=== PATIENT | female | born 1980 | race Caucasian/White ===

== ENCOUNTER 2019-02-15 22:39 | Inpatient (IN) | payer OTHER ==
[2019-02-15 23:14] VITALS: BMI 37.4
[2019-02-15] MEDS ORDERED: hydrALAZINE 20 MG/ML VIAL SLOW IVP PRN (23:41)
[2019-02-15] MEDS ORDERED: HYDROcodone/Acetaminophen 5/325 mg Tablet PO PRN ×2 (23:41)
[2019-02-15] MEDS ORDERED: Ondansetron PF 4 MG/2 ML Vial IVP PRN (23:41)
[2019-02-15] MEDS ORDERED: NS / Oxytocin 40 units/1000ml 1,000 ML IV PRN (23:41)
[2019-02-15] MEDS ORDERED: Lidocaine 1% (PF) 30 ML VIAL SC PRN (23:41)
[2019-02-15] MEDS ORDERED: Ibuprofen 800 MG TAB PO PRN (23:41)
[2019-02-15] MEDS ORDERED: Promethazine HCl 25 MG/ML VIAL IM PRN (23:41)
[2019-02-15] MEDS ORDERED: Butorphanol Tartrate 1 MG/ML VIAL SLOW IVP PRN (23:41)
[2019-02-15] MEDS ORDERED: NS w/ Oxytocin 10 units 500 ML IV SCH (23:45)
[2019-02-15] MEDS ORDERED: Lactated Ringer's 1,000 ML IV SCH (23:45)
[2019-02-16 00:07] LABS: Hemoglobin 11.2 g/dL (12.0-16.0); Mean Corpuscular HGB CONC 33.8 g/dL (32.0-36.0); Mean Corpuscular Hemoglobin 29.1 pg (27.0-31.0); Mean Corpuscular Volume 85.9 fL (78.0-98.0); Mean Platelet Volume 8.5 fL (7.4-10.4); Platelet Count 152 thou/uL (130-400); RBC Distribution Width 15.1 % (11.5-14.5); Red Blood Cell (RBC) Count 3.86 mill/uL (4.20-5.40); White Blood Cell (WBC) Count 9.3 thou/uL (4.8-10.8)
[2019-02-16] MEDS ORDERED: Fentanyl 4 mcg/Bup 0.1% Cadd 100 ML ONE (00:07)
[2019-02-16 00:50] LABS: Syphilis Antibody Nonreactive (Nonreactive); Syphilis Antibody Index 0.07 S/CO (<1.00 Non-Reactive)
[2019-02-16] MEDS ORDERED: Naloxone HCl 0.4 mg/ml Vial IVP PRN ×2 (00:59)
[2019-02-16] MEDS ORDERED: Acetaminophen 325 MG TAB PO PRN (00:59)
[2019-02-16] MEDS ORDERED: Lactated Ringer's 500 ML IV PRN (00:59)
[2019-02-16] MEDS ORDERED: Ondansetron PF 4 MG/2 ML Vial IVP PRN ×2 (00:59→05:34)
[2019-02-16] MEDS ORDERED: Promethazine HCl 25 MG/ML VIAL IM PRN ×2 (00:59→05:34)
[2019-02-16] MEDS ORDERED: ePHEDrine/0.9% NaCl/PF SYRINGE 50 mg/10 ml SLOW IVP PRN (00:59)
[2019-02-16] MEDS ORDERED: diphenhydrAMINE 50 MG/ML VIAL IVP PRN (00:59)
[2019-02-16] MEDS ORDERED: Communication Order-Pharmacy FS SCH (01:00)
[2019-02-16] MEDS ORDERED: Lactated Ringer's 1,000 ML IV SCH (01:00)
[2019-02-16] MEDS ORDERED: Fentanyl 4 mcg/Bupivacaine 0.1% Cassette 100 ML EPIDURAL SCH (01:00)
[2019-02-16 01:23] LABS: Hep B Surf Ag Non-Reactive S/CO (NonReactive)
--- NOTE | 2019-02-16 03:56 | PDOC.OPDEL ---
OB Operative/Delivery Note Delivery Dr/Surgeon: Tommy Lowery Pre-Delivery Diagnosis: active labor Procedure/Post Delivery Dx: spontaneous vaginal delivery Weeks gestation: 38 Anesthesia: epidural - Findings A Sex: male Weight: 0 oz (pending) - 1 min: 8 - 5 min: 9 - Additional Findings/Plan Placenta delivered: spontaneous Repaired Obstetrical Laceration: 2nd degree Estimated blood loss: 100 Post delivery plan: routine recovery
[2019-02-16] MEDS ORDERED: Lidocaine 1% (PF) 30 ML VIAL ONE (04:31)
[2019-02-16] MEDS ORDERED: NS / Oxytocin 40 units/1000ml 1,000 ML ONE (04:32)
[2019-02-16] MEDS ORDERED: Bisacodyl 10 MG SUPP PR PRN (05:34)
[2019-02-16] MEDS ORDERED: Adacel (T-DAP) 0.5 ML SYRINGE IM ONE (05:34)
[2019-02-16] MEDS ORDERED: diphenhydrAMINE 25 MG CAP PO PRN (05:34)
[2019-02-16] MEDS ORDERED: Lanolin Ointment 7 GM TUBE TOP PRN (05:34)
[2019-02-16] MEDS ORDERED: Milk Of Magnesia 30 ML UDCUP PO PRN (05:34)
[2019-02-16] MEDS ORDERED: Benzocaine-Menthol 82.5 ML CAN TOP PRN (05:34)
[2019-02-16] MEDS ORDERED: NS / Oxytocin 40 units/1000ml 1,000 ML IV SCH (05:34)
[2019-02-16] MEDS ORDERED: hydrALAZINE 20 MG/ML VIAL SLOW IVP PRN (05:34)
[2019-02-16] MEDS ORDERED: Preparation H Ointment 28 GM TUBE PR PRN (05:34)
[2019-02-16] MEDS ORDERED: HYDROcodone/Acetaminophen 5/325 mg Tablet PO PRN ×2 (05:34)
[2019-02-16] MEDS ORDERED: Levothyroxine Sodium 50 MCG TAB PO SCH (09:00)
[2019-02-16] MEDS: Ibuprofen 800 MG TAB PO SCH ×3 (09:10→21:59)
[2019-02-16] MEDS: Docusate Calcium (SURFAK) 240 MG CAP PO SCH ×2 (09:10→21:59)
[2019-02-16] MEDS: Prenatal Vitamin 1 TAB PO SCH (09:10)
[2019-02-16] MEDS: Ferrous Sulfate 325 MG TAB PO SCH ×2 (09:11→17:07)
[2019-02-16] MEDS: Levothyroxine Sodium 50 MCG TAB PO SCH (09:52)
[2019-02-17] MEDS: Ibuprofen 800 MG TAB PO SCH ×3 (05:56→21:22)
[2019-02-17] MEDS: Levothyroxine Sodium 50 MCG TAB PO SCH (05:57)
--- NOTE | 2019-02-17 07:34 | PDOC.PP ---
Post Progress Note Post Day #: 1-2 PO intake tolerated: yes Flatus: yes Ambulation: yes Vital Signs (12 hours) Temp Pulse Resp BP Pulse Ox 02/17/19 00:00 98.0 F 88 18 95/50 L 98 02/16/19 19:55 98.1 F 92 18 114/72 98 Weight Weight 225 lb Result Diagrams: 02/15/19 23:57 Additional Labs: Post Labs Blood Type O NEGATIVE 02/15/19 23:57 Hep Bs Antigen Non-Reactive S/CO (NonReactive) 02/15/19 23:57 - Assessment/Plan Post day 1-2 from . . Doing well. D/c home today. F/u in 6 weeks.
[2019-02-17] MEDS: Ferrous Sulfate 325 MG TAB PO SCH ×2 (07:52→16:10)
[2019-02-17] MEDS: Prenatal Vitamin 1 TAB PO SCH (07:53)
[2019-02-17] MEDS: Docusate Calcium (SURFAK) 240 MG CAP PO SCH ×2 (07:54→21:22)
[2019-02-18] MEDS: Ibuprofen 800 MG TAB PO SCH (07:05)
[2019-02-18] MEDS: Levothyroxine Sodium 50 MCG TAB PO SCH (07:06)
--- NOTE | 2019-02-18 07:44 | PDOC.PP ---
Post Progress Note Post Day #: 2 PO intake tolerated: yes Flatus: yes Ambulation: yes Vital Signs (12 hours) Temp Pulse Resp BP Pulse Ox 02/17/19 20:12 98.3 F 91 16 122/75 95 Weight Weight 225 lb Result Diagrams: 02/15/19 23:57 Additional Labs: Post Labs Blood Type O NEGATIVE 02/15/19 23:57 Hep Bs Antigen Non-Reactive S/CO (NonReactive) 02/15/19 23:57 - Assessment/Plan post day 2--ready fordischarge . f/u 6 weeks.
[2019-02-18 08:16] VITALS: BP 125/64; TEMP 97.9
[2019-02-18] MEDS: Prenatal Vitamin 1 TAB PO SCH (09:03)
[2019-02-18] MEDS: Ferrous Sulfate 325 MG TAB PO SCH (09:03)
[2019-02-18] MEDS: Docusate Calcium (SURFAK) 240 MG CAP PO SCH (09:03)
== END 2019-02-18 13:05 | disposition home or self-care (01) | DRG 807 ==
LOC: L&D/OP 22:39 → L&D 23:07 → 3SW 02-16 06:33
PROVIDERS: ADMIT Obstetrics & Gynecology; ATTEND Obstetrics & Gynecology
PROC: 10E0XZZ Delivery of Products of Conception, External Approach (ICD-10-PCS; principal; 2019-02-15)
PROC: 0KQM0ZZ Repair Perineum Muscle, Open Approach (ICD-10-PCS; 2019-02-15)
DX: O70.1 Second degree perineal laceration during delivery (principal); Z37.0 Single live birth; Z3A.38 38 weeks gestation of pregnancy
CPT/HCPCS: 36415; 85027; 85461; 86780; 86850; 86870; 86900; 86901; 87340; 90384; 96372; J2001